=== PATIENT | male | born 1980 | race Caucasian/White ===

== ENCOUNTER 2017-01-14 14:43 | Emergency (ER) | payer OTHER ==
[~2017-01-14] VITALS: Ht 177.8 cm; Wt 56.8 kg
[~2017-01-14 14:43] MED LIST: COLACE100 MG PO; HUMULIN R100 U/1 M1; INSR SC; KEFLEX500 MG PO; LAC PO; LANTI SQ; LANTUS SOLOS100 U/M1 SQ; LISINOPRIL10 MG PO; METFORMIN HCL500 MG PO; NORCO1 TA2 PO; ZESTRIL5 MG PO
[2017-01-14 17:16] VITALS: BP 123/90
== END 2017-01-14 17:16 | disposition home or self-care (01) ==
LOC: ED 14:43
DX: S05.01XA Injury of conjunctiva and corneal abrasion without foreign body, right eye, initial encounter (principal); E11.9 Type 2 diabetes mellitus without complications; I10 Essential (primary) hypertension; Z79.4 Long term (current) use of insulin; X58.XXXA Exposure to other specified factors, initial encounter; Y93.89 Activity, other specified; Y99.8 Other external cause status; Y92.89 Other specified places as the place of occurrence of the external cause

== ENCOUNTER 2017-01-22 16:03 | Emergency (ER) | payer OTHER ==
[~2017-01-22] VITALS: Ht 177.8 cm; Wt 61.2 kg
[2017-01-22 16:44] VITALS: BP 140/93
== END 2017-01-22 18:30 | disposition home or self-care (01) ==
LOC: ED 16:03
DX: S05.8X1A Other injuries of right eye and orbit, initial encounter (principal); H10.9 Unspecified conjunctivitis; I10 Essential (primary) hypertension; E10.9 Type 1 diabetes mellitus without complications; Z79.4 Long term (current) use of insulin; Z79.84 Long term (current) use of oral hypoglycemic drugs; W50.0XXA Accidental hit or strike by another person, initial encounter; Y93.89 Activity, other specified; Y99.8 Other external cause status; Y92.89 Other specified places as the place of occurrence of the external cause
CPT/HCPCS: J1885

== ENCOUNTER 2017-01-24 05:38 | Emergency (ER) | payer OTHER ==
[2017-01-24 09:16] VITALS: BP 145/99
== END 2017-01-24 09:16 | disposition home or self-care (01) ==
LOC: ED 05:38
DX: H10.9 Unspecified conjunctivitis (principal); E11.65 Type 2 diabetes mellitus with hyperglycemia; I10 Essential (primary) hypertension; Z79.84 Long term (current) use of oral hypoglycemic drugs; Z79.4 Long term (current) use of insulin
CPT/HCPCS: 82962; J1815; J1885; J7030

== ENCOUNTER 2017-02-14 11:27 | Inpatient (IN) | payer OTHER ==
[~2017-02-14] VITALS: Ht 177.8 cm; Wt 55.8 kg
[2017-02-14 12:28] LABS: BASOPHIL % 0.4 % (0-2); PLATELET COUNT 349 x10^3mcL (130-400)
[2017-02-14 12:30] LABS: RED CELL DISTRIBUTION WIDTH 14.7 % (11.5-14.5)
[2017-02-14 12:34] LABS: BILIRUBIN TOTAL 0.4 mg/dL (0.20-1.00); CALCIUM 8.5 mg/dL (8.5-10.1); CREATININE SERUM 1.5 mg/dL (0.7-1.3); POTASSIUM SERUM 4.5 mmol/L (3.5-5.1); TOTAL PROTEIN, SERUM 6.3 g/dL (6.4-8.2)
[2017-02-14 12:36] LABS: ALBUMIN 2.7 g/dL (3.4-5.0)
[2017-02-14 13:44] LABS: microscopic required? YES; urine erythrocyte 1+ (NEGATIVE)
[2017-02-14 14:45] LABS: CALCIUM 7.9 mg/dL (8.5-10.1); CARBON DIOXIDE 28.3 mmol/L (21-32); CHLORIDE SERUM 101 mmol/L (98-107); CREATININE SERUM 1.3 mg/dL (0.7-1.3); GFR1 > 60 mL/min; GLUCOSE SERUM 301 mg/dL (74-106); SODIUM SERUM 136 mmol/L (136-145)
[2017-02-14] MEDS ORDERED: PREMIERPRO RX5 MG/GM (14:51)
[2017-02-14 14:52] LABS: MAGNESIUM 1.7 mg/dL (1.8-2.4); PHOSPHOROUS 4.1 mg/dL (2.5-4.9)
[2017-02-14 14:53] LABS: CHOLESTEROL/HDL RATIO 5.8
[2017-02-14] MEDS ORDERED: ZESTRIL10 MG PO (14:55)
[2017-02-14 15:21] VITALS: BP 165/96
[2017-02-14 15:42] LABS: AMPHETAMINE QUAL UR POSITIVE (NEG <=1000)
[2017-02-14 16:45] VITALS: BP 170/91
[2017-02-14 18:05] VITALS: BP 175/99
[2017-02-14 20:54] VITALS: BP 145/82
[2017-02-15 05:45] VITALS: BP 140/70
[2017-02-15 07:13] LABS: BASOPHIL % 0.3 % (0-2); PLATELET COUNT 327 x10^3mcL (130-400)
[2017-02-15 07:40] LABS: RED CELL DISTRIBUTION WIDTH 15.3 % (11.5-14.5)
[2017-02-15 07:41] LABS: CHLORIDE SERUM 104 mmol/L (98-107); CREATININE SERUM 1.1 mg/dL (0.7-1.3); GFR1 > 60 mL/min; GLUCOSE SERUM 155 mg/dL (74-106); POTASSIUM SERUM 4.3 mmol/L (3.5-5.1); SODIUM SERUM 139 mmol/L (136-145)
[2017-02-15 09:35] VITALS: BP 144/83
[2017-02-15 13:58] VITALS: BP 151/88
[2017-02-15 15:17] LABS: IRON 63 ug/dL (65-170)
[2017-02-15 15:36] LABS: TOTAL IRON BINDING CAPACITY 219 ug/dL (250-450)
[2017-02-15 17:03] VITALS: BP 131/76
[2017-02-15 20:47] VITALS: BP 151/97
[2017-02-16 05:59] VITALS: BP 142/87
[2017-02-16 06:25] LABS: BASOPHIL % 0.3 % (0-2); PLATELET COUNT 354 x10^3mcL (130-400)
[2017-02-16 06:40] LABS: RED CELL DISTRIBUTION WIDTH 14.9 % (11.5-14.5)
[2017-02-16 06:45] LABS: CALCIUM 8.5 mg/dL (8.5-10.1); CARBON DIOXIDE 27.6 mmol/L (21-32); CHLORIDE SERUM 106 mmol/L (98-107); GFR1 > 60 mL/min; POTASSIUM SERUM 3.2 mmol/L (3.5-5.1); SODIUM SERUM 140 mmol/L (136-145)
[2017-02-16 06:50] LABS: GLUCOSE SERUM 36 mg/dL (74-106)
[2017-02-16 08:21] VITALS: BP 151/99
[2017-02-16] MEDS ORDERED: OSCD PO (11:40)
[2017-02-16] MEDS ORDERED: FER300 PO (11:41)
[2017-02-16] MEDS ORDERED: BACO TOP (11:45)
[2017-02-16] MEDS ORDERED: THERA TABS1 TAB PO (11:46)
[2017-02-16] MEDS ORDERED: HIBICLENS118 ML TOP (11:46)
[2017-02-16] MEDS ORDERED: LEVEMIR100 U/M1 SQ (11:48)
[2017-02-16 12:05] VITALS: BP 154/82
[2017-02-16 15:48] VITALS: BP 154/82
== END 2017-02-16 16:10 | disposition home or self-care (01) | DRG 420 ==
LOC: ED 11:27 → DU 13:38
PROVIDERS: Emergency Medicine; ADMIT Family Medicine
DX: E10.65 Type 1 diabetes mellitus with hyperglycemia (principal); N17.0 Acute kidney failure with tubular necrosis; E43 Unspecified severe protein-calorie malnutrition; D68.69 Other thrombophilia; E87.8 Other disorders of electrolyte and fluid balance, not elsewhere classified; E10.22 Type 1 diabetes mellitus with diabetic chronic kidney disease; S05.8X1A Other injuries of right eye and orbit, initial encounter; E83.42 Hypomagnesemia; N18.3 Chronic kidney disease, stage 3 (moderate); E87.1 Hypo-osmolality and hyponatremia; E78.5 Hyperlipidemia, unspecified; D64.9 Anemia, unspecified; H54.41 Blindness, right eye, normal vision left eye; R74.0 Nonspecific elevation of levels of transaminase and lactic acid dehydrogenase [LDH]; E86.0 Dehydration; R82.4 Acetonuria; F15.10 Other stimulant abuse, uncomplicated; N20.0 Calculus of kidney; X58.XXXA Exposure to other specified factors, initial encounter; Y93.89 Activity, other specified; Z79.4 Long term (current) use of insulin; Z79.84 Long term (current) use of oral hypoglycemic drugs; Y92.89 Other specified places as the place of occurrence of the external cause; Z80.43 Family history of malignant neoplasm of testis; Y99.8 Other external cause status
CPT/HCPCS: 36600; 82962; 83880; J1815; J3475; J3490; J7030; Q0092

== ENCOUNTER 2017-04-07 16:00 | Emergency (ER) | payer SELFPAY ==
[~2017-04-07] VITALS: Ht 177.8 cm; Wt 55.8 kg
[~2017-04-07 16:00] MED LIST changes: +BACO TOP; +FER300 PO; +HIBICLENS118 ML TOP; +LEVEMIR100 U/M1 SQ; +OSCD PO; +PREMIERPRO RX5 MG/GM; +THERA TABS1 TAB PO; +ZESTRIL10 MG PO
[2017-04-07 16:46] LABS: BASOPHIL % 0.1 % (0-2); PLATELET COUNT 324 x10^3mcL (130-400)
[2017-04-07 17:09] LABS: CALCIUM 8.4 mg/dL (8.5-10.1); CARBON DIOXIDE 27.8 mmol/L (21-32); CHLORIDE SERUM 92 mmol/L (98-107); CREATININE SERUM 1.4 mg/dL (0.7-1.3); GFR1 > 60 mL/min; SODIUM SERUM 127 mmol/L (136-145)
[2017-04-07 17:10] LABS: GLUCOSE SERUM 567 mg/dL (74-106)
[2017-04-07 20:00] VITALS: BP 126/77
== END 2017-04-07 20:00 | disposition home or self-care (01) ==
LOC: ED 16:00
PROVIDERS: Emergency Medicine
DX: R51 Headache (principal); M79.1 Myalgia; R05 Cough; R11.0 Nausea; E11.9 Type 2 diabetes mellitus without complications; I10 Essential (primary) hypertension; Z79.84 Long term (current) use of oral hypoglycemic drugs
CPT/HCPCS: 82962; 87804; J1815; J1885; J2405; J7030

== ENCOUNTER 2017-08-06 13:14 | Inpatient (IN) | payer OTHER ==
[~2017-08-06] VITALS: Ht 152.4 cm; Wt 53.6 kg
[2017-08-06 14:01] LABS: BASOPHIL % 0.3 % (0-2); PLATELET COUNT 342 x10^3mcL (130-400)
[2017-08-06 14:17] LABS: RED CELL DISTRIBUTION WIDTH 15.1 % (11.5-14.5)
[2017-08-06 14:22] LABS: microscopic required? YES; urine erythrocyte 1+ (NEGATIVE)
[2017-08-06 14:42] LABS: AMPHETAMINE QUAL UR POSITIVE (NEG <=1000)
[2017-08-06 15:07] LABS: BILIRUBIN TOTAL 0.3 mg/dL (0.20-1.00); CALCIUM 8.3 mg/dL (8.5-10.1); CARBON DIOXIDE 22.3 mmol/L (21-32); POTASSIUM SERUM 4.8 mmol/L (3.5-5.1); TOTAL PROTEIN, SERUM 6.5 g/dL (6.4-8.2)
[2017-08-06 15:10] LABS: ALBUMIN 2.5 g/dL (3.4-5.0)
[2017-08-06 15:50] LABS: CREATININE SERUM 2.1 mg/dL (0.7-1.3); T4(THYROXINE) 0.7 ug/dL (4.7-13.3)
[2017-08-06] MEDS ORDERED: METFORMIN HYDR500 M1 PO (15:56)
[2017-08-06 16:33] VITALS: BP 130/75
[2017-08-06 16:36] VITALS: Ht 152.4 cm; Wt 53.6 kg
[2017-08-06 17:27] LABS: CHOLESTEROL/HDL RATIO 3.8; MAGNESIUM 2.1 mg/dL (1.8-2.4); PHOSPHOROUS 4.7 mg/dL (2.5-4.9)
[2017-08-06 17:33] VITALS: BP 130/97
[2017-08-06 18:13] VITALS: BP 130/97
[2017-08-06 22:15] VITALS: BP 126/76
[2017-08-07 06:03] VITALS: BP 155/88
[2017-08-07 07:36] LABS: CALCIUM 8.3 mg/dL (8.5-10.1); CARBON DIOXIDE 23.7 mmol/L (21-32); CHLORIDE SERUM 106 mmol/L (98-107); CREATININE SERUM 1.1 mg/dL (0.7-1.3); GFR1 > 60 mL/min; GLUCOSE SERUM 93 mg/dL (74-106); MAGNESIUM 2.2 mg/dL (1.8-2.4); PHOSPHOROUS 4.1 mg/dL (2.5-4.9); POTASSIUM SERUM 4.2 mmol/L (3.5-5.1); SODIUM SERUM 140 mmol/L (136-145)
[2017-08-07 07:52] LABS: PLATELET COUNT 333 x10^3mcL (130-400)
[2017-08-07 08:10] LABS: BASOPHIL % 0 % (0-2); RED CELL DISTRIBUTION WIDTH 15.5 % (11.5-14.5)
[2017-08-07 10:10] VITALS: BP 148/91
[2017-08-07] MEDS ORDERED: LEVAQUIN250 M1 PO (11:28)
[2017-08-07] MEDS ORDERED: LEVEMIR100 U/M1 SQ (11:28)
[2017-08-07] MEDS ORDERED: COUGH100 MG/5 M PO (11:29)
[2017-08-07] MEDS ORDERED: ROBITUSSIN W/CODEINE PO (11:29)
[2017-08-07] MEDS ORDERED: BACO TOP (11:29)
[2017-08-07 12:11] VITALS: BP 148/91
== END 2017-08-07 12:35 | disposition home or self-care (01) | DRG 420 ==
LOC: ED → DU 15:00 → MU 15:00 → DU 16:11 → MU 08-07 06:21
PROVIDERS: Emergency Medicine; Student in an Organized Health Care Education/Training Program
DX: E11.10 Type 2 diabetes mellitus with ketoacidosis without coma (principal); N17.0 Acute kidney failure with tubular necrosis; E43 Unspecified severe protein-calorie malnutrition; J10.08 Influenza due to other identified influenza virus with other specified pneumonia; I10 Essential (primary) hypertension; H54.40 Blindness, one eye, unspecified eye; E87.1 Hypo-osmolality and hyponatremia; Z79.84 Long term (current) use of oral hypoglycemic drugs; Z68.23 Body mass index [BMI] 23.0-23.9, adult; Z79.899 Other long term (current) drug therapy
CPT/HCPCS: 36600; 83880; 87804; J1815; J1956; J2930; J7030; J7613; J7620; J7644; Q0092

== ENCOUNTER 2018-07-21 13:59 | Emergency (ER) | payer OTHER ==
[~2018-07-21] VITALS: Ht 177.8 cm; Wt 59.0 kg
[~2018-07-21 13:59] MED LIST changes: +COUGH100 MG/5 M PO; +LEVAQUIN250 M1 PO; +METFORMIN HYDR500 M1 PO; +ROBITUSSIN W/CODEINE PO
[2018-07-21 14:08] VITALS: BP 115/76; Ht 177.8 cm; Wt 59.0 kg
== END 2018-07-21 15:29 | disposition left against medical advice (07) ==
LOC: ED 13:59
DX: Z53.21 Procedure and treatment not carried out due to patient leaving prior to being seen by health care provider (principal)

== ENCOUNTER 2018-08-08 07:43 | Inpatient (IN) | payer OTHER ==
[~2018-08-08] VITALS: Ht 177.8 cm; Wt 59.0 kg
--- NOTE | 2018-08-08 07:54 | NUR ---
PER DR. MUKUND JIANG TO ORDER DIET.
--- NOTE | 2018-08-08 07:59 | NUR ---
PT SOM IN BY [facility] FOR LOW BS. UNCONCIOUS UPON ARRIVAL PER [facility]. PT GIVEN D10 SAWYER CORK SLABS. PT NOW A/O ABLE TO COMMUNICATE NEEDS. PT EXPRESSED GIVEN SELF WRONG INSULIN LAST PM AROUND 1045 UPON ARRIVAL BS WAS 36 DR. DUVAL AWARE PT GIVEN WARM BLANKET SANDWICH AND OJ FOR COMFORT AND TO INCREASE BS. WILL CONTINUE TO RECHECK
--- NOTE | 2018-08-08 08:05 | NUR ---
LAB AT BEDSIDE
[2018-08-08 08:20] LABS: BASOPHIL % 0.4 % (0-2)
[2018-08-08 08:21] LABS: PLATELET COUNT 475 x10^3mcL (130-400)
--- NOTE | 2018-08-08 08:28 | NUR ---
PT BS INCRASE TO 53 PT IS ALERT AND ORIENTED. SPEAKS IN FULL SENTENCES AND ABLE TO COMMUNICATE NEEDS. PT GIVE OJ AND WARM BLANKET FOR CONTINUED COMFORT AND BS
[2018-08-08 08:31] LABS: ALKALINE PHOSPHATASE 241 U/L (46-116); ALT/SGPT 49 U/L (16-63); AST/SGOT 32 U/L (15-37); CALCIUM 9.6 mg/dL (8.5-10.1); CARBON DIOXIDE 34.5 mmol/L (21-32); CHLORIDE SERUM 102 mmol/L (98-107); CREATININE SERUM 1.5 mg/dL (0.7-1.3); GFR1 57 mL/min; SODIUM SERUM 138 mmol/L (136-145); TOTAL PROTEIN, SERUM 7.7 g/dL (6.4-8.2)
--- NOTE | 2018-08-08 08:34 | NUR ---
DR. DUVAL INFORMED BS 53 AT THIS TIME, PT AWAKE, ALERT, NO ORDERS AT THIS TIME.
[2018-08-08 09:02] LABS: ALBUMIN 2.8 g/dL (3.4-5.0); GLUCOSE SERUM 31 mg/dL (74-106); POTASSIUM SERUM 2.7 mmol/L (3.5-5.1)
--- NOTE | 2018-08-08 09:14 | NUR ---
VITALS TAKEN AND INFORMED DR DUVAL OF BP. PER MD HOLD LABATALOL AND OK TO GIVE CLINIDINE. IV INFUSING WITH NO INFILTRATION OR PAINNOTED. PT LYING COMFORTABLY AT CURRENT TIME. MEDICATION GIVEN WITHOUT DIFFICULTY
[2018-08-08 09:18] LABS: BILIRUBIN TOTAL 0.15 mg/dL (0.20-1.00)
--- NOTE | 2018-08-08 10:07 | NUR ---
BS CHECK 204. NOTIFIED DR DUVAL OF RESULT. PER DR BRAR D10 AND RECHECK Q 1HR
[2018-08-08] MEDS ORDERED: LANTUS SOLOS100 U/M1 SQ (10:33)
--- NOTE | 2018-08-08 10:55 | NUR ---
D10 IV AT 100 CC/HR INFUSING ORDERED. PT SLEEPING, EASILY AROUSABLE, NO SIGNS OF DISTRESS. NSR ON HUSBANDRY PERSON.
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
--- NOTE | 2018-08-08 12:09 | NUR ---
08/08/18 AT 1149: SPOT CHECKED BLOOD GLUCOSE = 69. PT GIVEN 1 ORANGE JUICE. 08/08/18 AT 1209: RECHECKED BLOOD GLUCOSE = 72. WILL CONTINUE TO MONITOR.
[2018-08-08 12:35] LABS: microscopic required? YES; urine erythrocyte 2+ (NEGATIVE)
[2018-08-08 12:38] VITALS: BP 185/112
[2018-08-08 13:16] LABS: AMPHETAMINE QUAL UR POSITIVE (See below)
--- NOTE | 2018-08-08 14:47 | NUR ---
PT RESTING IN BED. NO ACUTE DISTRESS. ASLEEP BUT AROUSABLE. RESP EVEN AND UNLABORED ON RA. IVF INFUSING, NO REDNESS OR SWELLING. BED IN LOW POSITION, CALL LIGHT WITHIN REACH. WILL CONTINUE TO MONITOR.
[2018-08-08 15:10] VITALS: BP 165/99
[2018-08-08 16:25] VITALS: BP 150/94
--- NOTE | 2018-08-08 18:43 | NUR ---
PT RESTING IN BED. NO ACUTE DISTRESS. SLEEPING BUT AROUSABLE. RESP EVEN AND UNLABORED ON RA. IVF INFUSING, NO REDNESS OR SWELLING TO IV SITE. BED IN LOW POSITION, CALL LIGHT WITHIN REACH. WILL ENDORSE TO ONCOMING SHIFT.
--- NOTE | 2018-08-08 19:50 | NUR ---
AOX4. DROWSY BUT ARROUSABLE. TELE #25, SR. LUNGS CLEAR ON RA. PULSES PALPABLE. NO EDEMA. BOWEL SOUNDS ACTIVE. VOIDS FREELY. AMBULATORY. DRY SCAB NOTED TO L FACE, JUAN C. L GREAT TOE AMPUTATED. SKIN WARM AND DRY OTHERWISE. DENIES PAIN. IV TO LH, PATENT AND INFUSING. BED IN LOWEST POSITION, 2 SIDE RAILS UP, CALL LIGHT IN REACH. INSTRUCTED TO CALL FOR ASSISTANCE.
[2018-08-08 21:06] VITALS: BP 138/81
--- NOTE | 2018-08-09 00:35 | NUR ---
RESTING IN BED WITH EYES CLOSED. BREATHING EVEN AND UNLABORED ON RA. NO ACUTE DISTRESS NOTED. EASILY ARROUSABLE TO VERBAL STIMULI. WILL CONTINUE TO MONITOR.
[2018-08-09 05:46] VITALS: BP 144/94
--- NOTE | 2018-08-09 06:14 | NUR ---
BLOOD SUGAR STABLE OVERNIGHT. PT AOX4. NO S/S OF HYPOGLYCEMIA. NO ACUTE DISTRESS NOTED. NO ACUTE CHANGES. WILL ENDORSE TO ONCOMING RN.
[2018-08-09 07:00] LABS: BASOPHIL % 0.3 % (0-2)
[2018-08-09 07:03] LABS: PLATELET COUNT 412 x10^3mcL (130-400); RED CELL DISTRIBUTION WIDTH 15.3 % (11.5-14.5)
[2018-08-09 07:19] LABS: CALCIUM 8.3 mg/dL (8.5-10.1); CARBON DIOXIDE 28.4 mmol/L (21-32); CHLORIDE SERUM 106 mmol/L (98-107); CREATININE SERUM 1.2 mg/dL (0.7-1.3); GFR1 > 60 mL/min; GLUCOSE SERUM 140 mg/dL (74-106); POTASSIUM SERUM 4.4 mmol/L (3.5-5.1); SODIUM SERUM 140 mmol/L (136-145)
--- NOTE | 2018-08-09 07:30 | NUR ---
RECEIVED PT IN NO ACUTE DISTRESS. ASLEEP BUT AROUSABLE. RESP EVEN AND UNLABORED ON RA. IV TO L HAND AND RFA, NO REDNESS OR SWELLING NOTED TO IV SITE. BED IN LOW POSITION, CALL LIGHT WITHIN REACH. WILL CONTINUE TO MONITOR.
--- NOTE | 2018-08-09 07:52 | NUR ---
PT REPORTED IV TO LEFT HAND CAME OUT, CATHETER INTACT. IV TO RFA INTACT, NO REDNESS OR SWELLING. WILL CONTINUE TO MONITOR.
[2018-08-09 08:10] VITALS: BP 155/72
[2018-08-09 12:39] VITALS: BP 148/85
--- NOTE | 2018-08-09 13:11 | NUR ---
08/09/18 AT 1153 BLOOD GLUCOSE CHECKED WAS AT 565. REPEATED 591. PT AWAKE, ALERT AND ORIENTED. PT GIVEN 21 UNITS OF REGULAR INSULIN PER SLIDING SCALE PROTOCOL. MOLD CAPPER JASSI NOTIFIED. GAVE ORDER TO DC IVF, CARRIED OUT ORDERED. BLOOD GLUCOSE REPEATED AT 1245. INITIAL READING "HI" ON ACUCHECK MACHINE. REPEATED 483. PT AWAKE, ALERT AND ORIENTED. NOTIFIED MOLD CAPPER JASSI. GAVE ORDER TO GIVE 8 UNITS REGULAR INSULIN BEFORE PT EATS LUNCH. CARRIED OUT ORDERED CALL LIGHT WITHIN REACH. WILL CONTINUE TO [facility].
[2018-08-09 16:59] VITALS: BP 140/78
--- NOTE | 2018-08-09 18:16 | NUR ---
08/09/18 AT 1655 BLOOD GLUCOSE 28. REPEATED GLUCOSE WAS 42. PT WAS AWAKE AND ALERT. PT REFUSED D50. PT WAS GIVEN 3 ORANGE JUICE WITH 5 TOTAL PACKETS OF SUGAR, 1 APPLE JUICE AND CRACKERS. GLUCOSE RECHECKED AT 1723 WAS 38, WAS RECHECKED AGAIN WAS 62. PT GIVEN MORE ORANGE JUICE WITH 4 PACKETS OF SUGAR. PT WAS GIVEN HIS DINNER AT WAS EATING AT THIS TIME. BLOOD GLUCOSE REPEATED AT 1805 AND WAS 148. PT AOX4. NO ACUTE DISTRESS AT THIS TIME. CALL LIGHT WITHIN REACH. WILL CONTINUE TO [facility].
--- NOTE | 2018-08-09 18:35 | NUR ---
PT LAYING DOWN IN BED. PT ALERT AND ORIENTED. NO SIGNS OF ACUTE DISTRESS. RESPIRATIONS ARE UNLABORED AND EVEN. IV SITE PATENT WITH NO SIGNS OF REDNESS OR SWELLING. BED IN LOWEST POSITION. CALL LIGHT WITHIN REACH. WILL ENDORSE TO ONCOMING SHIFT.
[2018-08-09 21:52] VITALS: BP 125/81
--- NOTE | 2018-08-10 01:30 | NUR ---
SPOT CHECK ACCU CHECK 126. PT EASILY AROUSABLE TO VERBAL STIMULI. NO ACUTE DISTRESS NOTED. WILL CONTINUE TO MONITOR.
[2018-08-10 06:17] VITALS: BP 123/72
--- NOTE | 2018-08-10 06:28 | NUR ---
0630 ACCU CHECK 340, ADMINISTERED 12 UNITS REGULAR INSULIN PER EMAR. NO S/S HYPOGLYCEMIA OVERNIGHT. WILL ENDORSE TO ONCOMING RN.
[2018-08-10 06:36] LABS: CALCIUM 8.5 mg/dL (8.5-10.1); CARBON DIOXIDE 29.9 mmol/L (21-32); CHLORIDE SERUM 99 mmol/L (98-107); CREATININE SERUM 1.4 mg/dL (0.7-1.3); GFR1 > 60 mL/min; GLUCOSE SERUM 343 mg/dL (74-106); POTASSIUM SERUM 4.5 mmol/L (3.5-5.1); SODIUM SERUM 132 mmol/L (136-145)
[2018-08-10 07:02] LABS: BASOPHIL % 0.4 % (0-2); PLATELET COUNT 395 x10^3mcL (130-400); RED CELL DISTRIBUTION WIDTH 15.2 % (11.5-14.5)
--- NOTE | 2018-08-10 07:50 | NUR ---
RC'D PT RESTING IN BED WITH NO APPARENT SIGNS OF DISTRESS. A/A/O/X4, SPEECH CLEAR AND APPROPRIATE. DENIES LITTLEJOHN/DIZZINESS. ON TELE, DENIES CHEST PAIN/PRESSURE. PALP PULSES, NO EDEMA NTOED. RESPIRATIONS EQUAL AND UNLABORDE. LUNGS CTA. ON RA, DENIES SOB. ABDOMEN SOFT AND NONTNEDER. ACTIVE BS. DENIES N/V. VOIDS FREELY. DENIES BURNING. AMBULATORY, PT DENIES PAIN AT THIS TIME. IV PATENT AND INTACT. BED IN LOW PSOITION. CALL LIGHT IN REACH. WILL CONTINEU TO MONITOR
--- NOTE | 2018-08-10 08:40 | NUR ---
AM MEDICATIONS GIVEN. PT TOLERATED WELL. RESPIRATIONS EQUAL AND UNLABORED. ON RA, DENIES SOB. PT DENIES PAIN AT THIS TIME. BED IN LOW POSITION. CALL LIGHT IN REACH. WILL CONTINUE TO MONITOR
[2018-08-10 08:43] VITALS: BP 123/71
[2018-08-10 09:00] VITALS: Ht 177.8 cm; Wt 59.0 kg
[2018-08-10 09:49] VITALS: BP 123/71
--- NOTE | 2018-08-10 10:02 | NUR ---
PT PROVIDED WITH DC HOME INFORMATION. PT GIVEN MEDICATION EDUCATION. PT INSTRUCTED TO TAKE MEDICATIONS DIRECTED. PT INSTRUCTED THAT IF WORSENING SIGNS AND SYMPTOMS WERE TO OCCUR TO RETURN TO ED OR REPORT TO PCP. PT AND FAMILY VERBALIZED UNDERSTANDING OF INSTRUCTIONS. TELE AND IV DC'D, CATHETER INTACT. NO REDNESS/INFLAMMATION/DISCOMFORT NOTED. PT TAKEN DOWN WITH ALL PERSONAL BELONGINGS IN HAND FREE OF ANY APPARENT DISTRESS.
== END 2018-08-10 10:04 | disposition home or self-care (01) | DRG 917 ==
LOC: ED 07:43 → DU 09:58
PROVIDERS: Emergency Medicine; Family Medicine; ADMIT Internal Medicine
DX: T38.3X1A Poisoning by insulin and oral hypoglycemic [antidiabetic] drugs, accidental (unintentional), initial encounter (principal); G93.41 Metabolic encephalopathy; N17.0 Acute kidney failure with tubular necrosis; E44.0 Moderate protein-calorie malnutrition; N39.0 Urinary tract infection, site not specified; E10.649 Type 1 diabetes mellitus with hypoglycemia without coma; I12.9 Hypertensive chronic kidney disease with stage 1 through stage 4 chronic kidney disease, or unspecified chronic kidney disease; N18.3 Chronic kidney disease, stage 3 (moderate); E10.22 Type 1 diabetes mellitus with diabetic chronic kidney disease; H54.61 Unqualified visual loss, right eye, normal vision left eye; F12.10 Cannabis abuse, uncomplicated; Z79.4 Long term (current) use of insulin; Y92.009 Unspecified place in unspecified non-institutional (private) residence as the place of occurrence of the external cause
CPT/HCPCS: 82962; 90658; C9113; G0480; J0696; J1644; J3480; J3490; J7042

== ENCOUNTER 2018-11-21 06:19 | Emergency (ER) | payer OTHER ==
[~2018-11-21] VITALS: Ht 177.8 cm; Wt 68.0 kg
[2018-11-21 06:20] VITALS: Ht 177.8 cm; Wt 68.0 kg
[2018-11-21 06:59] LABS: BASOPHIL % 0.4 % (0-2)
[2018-11-21 07:11] LABS: BILIRUBIN TOTAL 0.46 mg/dL (0.20-1.00); CALCIUM 9.1 mg/dL (8.5-10.1); CARBON DIOXIDE 31.2 mmol/L (21-32); CREATININE SERUM 1.7 mg/dL (0.7-1.3); POTASSIUM SERUM 4.1 mmol/L (3.5-5.1); TOTAL PROTEIN, SERUM 6.2 g/dL (6.4-8.2)
[2018-11-21 07:14] LABS: ALBUMIN 2.1 g/dL (3.4-5.0)
[2018-11-21 07:38] LABS: PLATELET COUNT 440 x10^3mcL (130-400); RED CELL DISTRIBUTION WIDTH 14.8 % (11.5-14.5)
[2018-11-21 10:11] VITALS: BP 144/91
== END 2018-11-21 10:11 | disposition home or self-care (01) ==
LOC: ED 06:19
PROVIDERS: Emergency Medicine
DX: M54.6 Pain in thoracic spine (principal); N28.9 Disorder of kidney and ureter, unspecified; R42 Dizziness and giddiness; R06.00 Dyspnea, unspecified; R11.0 Nausea
CPT/HCPCS: 82962; J1815; J2270; J2405; J7030; Q0092; Q9967

== ENCOUNTER 2019-02-21 21:54 | Emergency (ER) | payer OTHER ==
[~2019-02-21] VITALS: Ht 177.8 cm; Wt 58.1 kg
[2019-02-21 21:58] VITALS: Ht 177.8 cm; Wt 58.1 kg
[2019-02-21 22:34] LABS: BASOPHIL % 0.3 % (0-2); PLATELET COUNT 383 x10^3mcL (130-400)
[2019-02-21 22:36] LABS: RED CELL DISTRIBUTION WIDTH 14.8 % (11.5-14.5)
[2019-02-21 23:04] LABS: BILIRUBIN TOTAL 0.1 mg/dL (0.20-1.00); CALCIUM 8.1 mg/dL (8.5-10.1); CARBON DIOXIDE 31.3 mmol/L (21-32); CREATININE SERUM 1.9 mg/dL (0.7-1.3); POTASSIUM SERUM 4.2 mmol/L (3.5-5.1)
[2019-02-21 23:06] LABS: ALBUMIN 1.9 g/dL (3.4-5.0); TOTAL PROTEIN, SERUM 5.9 g/dL (6.4-8.2)
[2019-02-22 01:34] VITALS: BP 145/87
== END 2019-02-22 01:34 | disposition home or self-care (01) ==
LOC: ED 21:54
PROVIDERS: Emergency Medicine
DX: J18.9 Pneumonia, unspecified organism (principal); I10 Essential (primary) hypertension; E11.9 Type 2 diabetes mellitus without complications
CPT/HCPCS: 82962; 83880; J1815; J7613; J7644

== ENCOUNTER 2019-02-28 01:05 | Emergency (ER) | payer OTHER ==
[~2019-02-28] VITALS: Ht 177.8 cm; Wt 59.4 kg
[2019-02-28 01:11] VITALS: BP 138/93; Ht 177.8 cm; Wt 59.4 kg
== END 2019-02-28 03:02 | disposition left against medical advice (07) ==
LOC: ED 01:05
DX: Z53.21 Procedure and treatment not carried out due to patient leaving prior to being seen by health care provider (principal)

== ENCOUNTER 2019-04-14 15:24 | Emergency (ER) | payer OTHER ==
[~2019-04-14] VITALS: Ht 177.8 cm; Wt 58.5 kg
[2019-04-14 15:43] VITALS: Ht 177.8 cm; Wt 58.5 kg
[2019-04-14 17:00] LABS: PLATELET COUNT 306 x10^3mcL (130-400)
[2019-04-14 17:01] LABS: BASOPHIL % 0 % (0-2)
[2019-04-14 17:12] LABS: CALCIUM 7.9 mg/dL (8.5-10.1); CARBON DIOXIDE 33.6 mmol/L (21-32); CHLORIDE SERUM 98 mmol/L (98-107); CREATININE SERUM 1.3 mg/dL (0.7-1.3); GFR1 > 60 mL/min; GLUCOSE SERUM 257 mg/dL (74-106); POTASSIUM SERUM 3.8 mmol/L (3.5-5.1); SODIUM SERUM 135 mmol/L (136-145)
[2019-04-14 17:15] LABS: AST/SGOT 70 U/L (15-37); MAGNESIUM 1.9 mg/dL (1.8-2.4)
[2019-04-14 17:29] LABS: ALKALINE PHOSPHATASE 267 U/L (46-116); CHOLESTEROL 194 mg/dL (<200); PHOSPHOROUS 3.1 mg/dL (2.5-4.9)
[2019-04-14 17:30] LABS: ALBUMIN 1.7 g/dL (3.4-5.0); HDL CHOLESTEROL 68 mg/dL (40-60); TOTAL PROTEIN, SERUM 5.9 g/dL (6.4-8.2)
[2019-04-14 17:41] LABS: ALT/SGPT 81 U/L (16-63)
[2019-04-14 17:54] LABS: BILIRUBIN TOTAL 0.1 mg/dL (0.20-1.00)
[2019-04-14 19:21] LABS: microscopic required? YES; urine erythrocyte 1+ (NEGATIVE)
[2019-04-14 19:25] VITALS: BP 150/103
[2019-04-14 19:26] LABS: AMPHETAMINE QUAL UR POSITIVE (See below)
== END 2019-04-14 19:25 | disposition home or self-care (01) ==
LOC: ED 15:24
PROVIDERS: Emergency Medicine
DX: M79.601 Pain in right arm (principal); E11.65 Type 2 diabetes mellitus with hyperglycemia; M79.10 Myalgia, unspecified site; F15.10 Other stimulant abuse, uncomplicated; I10 Essential (primary) hypertension; Z98.890 Other specified postprocedural states
CPT/HCPCS: J1885; J7030

== ENCOUNTER 2019-04-16 08:00 | Emergency (ER) | payer OTHER ==
[~2019-04-16] VITALS: Ht 177.8 cm; Wt 62.1 kg
[2019-04-16 08:04] VITALS: Ht 177.8 cm; Wt 62.1 kg
[2019-04-16 08:41] VITALS: BP 150/90
[2019-04-17] MEDS ORDERED: LANTUS SOLOS100 U/M1 SC (03:45)
[2019-04-17] MEDS ORDERED: METFORMIN HYDR500 M1 PO (03:45)
[2019-04-17] MEDS ORDERED: LISINOPRIL10 MG PO (03:46)
== END 2019-04-16 08:41 | disposition home or self-care (01) ==
LOC: ED 08:00
DX: L03.113 Cellulitis of right upper limb (principal); I10 Essential (primary) hypertension; E10.9 Type 1 diabetes mellitus without complications

== ENCOUNTER 2019-04-17 00:40 | Inpatient (IN) | payer OTHER ==
[~2019-04-17] VITALS: Ht 177.8 cm; Wt 60.3 kg
[2019-04-17 00:49] VITALS: Ht 177.8 cm; Wt 60.3 kg
--- NOTE | 2019-04-17 02:10 | NUR ---
PT BIB FAMILY C/O RIOGHT ARM PAIN X5 DAYS. DENIES INJURY. PT REPORTS BEING SEEN THIS MORNING HERE AT [facility] AND PAIN HAS WORSENED TODAY. PER OT, THERE IS "A BLOOD INFECTION" TO HIS ARM. NO SWELLING OR REDNESS NOTED TO RIGHT ARM. PT IS AAOX4, NO DISTRESS NOTED, RESP E/U, SKIN INTACT WARM AND DRY. PT LAYING IN POSITION OF COMFORT WITH SLING TO RIGHT ARM THAT WAS PLACED THIS MORNING AT ER VISIT. MSE COMPLETED BY . PT ORIENTED TO ROOM, BED IN LOWEST POSITION AND CALL ZELAYA WITHIN REACH. PT PLACED ON MONITOR. AWAITING FURTHER ORDERS.
--- NOTE | 2019-04-17 02:30 | NUR ---
IN MOLD COATER AT BEDSIDE FOR LAB DRAW.
[2019-04-17 02:40] LABS: BASOPHIL % 0.3 % (0-2); PLATELET COUNT 301 x10^3mcL (130-400); RED CELL DISTRIBUTION WIDTH 14.2 % (11.5-14.5)
[2019-04-17 02:49] LABS: CALCIUM 8.4 mg/dL (8.5-10.1); CARBON DIOXIDE 33.9 mmol/L (21-32); CREATININE SERUM 1.6 mg/dL (0.7-1.3); POTASSIUM SERUM 3.4 mmol/L (3.5-5.1)
--- NOTE | 2019-04-17 02:53 | NUR ---
PT AMBULATED TO RESTROOM WITH A STEADY GAIT TO RESTROOM AND BACK TO [facility] WITHOUT INCIDENT.
[2019-04-17 02:54] LABS: ALBUMIN 1.5 g/dL (3.4-5.0); BILIRUBIN TOTAL 0.18 mg/dL (0.20-1.00); TOTAL PROTEIN, SERUM 5.9 g/dL (6.4-8.2)
[2019-04-17 03:06] LABS: CHOLESTEROL/HDL RATIO 3.2
--- NOTE | 2019-04-17 03:07 | NUR ---
COMPANY ACCOUNTANT AT BEDSIDE. PT REFUSED XRAY. DR AUGUSTIN NOTIFIED. DR AUGUSTIN AT BEDSIDE DISCUSSING PLAN OF CARE TO PATIENT AND INSTRUCTED OF IMPROTANCE OF XRAY. PT AGREED TO XRAY AT THIS TIME.
[2019-04-17 03:36] LABS: microscopic required? YES; urine erythrocyte 1+ (NEGATIVE)
[2019-04-17] MEDS ORDERED: LANTUS SOLOS100 U/M1 SC (03:45)
[2019-04-17] MEDS ORDERED: METFORMIN HYDR500 M1 PO (03:45)
[2019-04-17] MEDS ORDERED: LISINOPRIL10 MG PO (03:46)
--- NOTE | 2019-04-17 03:52 | NUR ---
FLUIDS INFUSING, NO PROBELM, NO INFILTRATION OR PAIN NOTED TO IV SITE. PT IN POSTION OF COMFORT RIGHT SIDE LAYING. PT ON MONITOR, VSS, WILL CONT TO MONITOR.
--- NOTE | 2019-04-17 04:09 | NUR ---
REPORT GIVEN TO RIGO SUTTON ON [facility], WHO WILL ASSUME FURTHER CARE OF THIS PATIENT.
[2019-04-17 04:20] LABS: AMPHETAMINE QUAL UR POSITIVE (See below)
[2019-04-17 04:57] VITALS: BP 149/78
--- NOTE | 2019-04-17 06:05 | NUR ---
RECEIVED PT IN FROM ED VIA WHEELCHAIR ACCOMPANIED BY RN. PT CAME DUE TO RIGHT ELBOW PAIN X5 DAYS. AOX4. AMBULATORY. ABLE TO FOLLOW COMMANDS. C/O PAIN ELBOW 01/30. ABDOMEN SOFT AND ROUND. BOWEL SAOUNDS ACTIVE. REGULAR BM. COULD'T TAKE A PHOTO ON HIS RIGHT ARM DUE TO PAIN. PT C/O PAIN TO TOUCHED AND MOVEMENT. REFUSED TO BE TOUCHED ON HIS RIGHT ARM. ABSENT OF LEFT BIG TOE. PULSES PRESENT. TRACE EDEMA TO BLE. RIGHT ARM TENDER TO TOUCHED. BED IN LOWEST POSITION,CALL LIGHT WITHIN REACH. WILL CONTINUE TO MONITOR.
--- NOTE | 2019-04-17 06:55 | NUR ---
RECEIVED PT IN BED FROM ED VIA WHEELCHAIR ACCOMPANIED BY AN RN. PT CAME IN DUE TO RIGHT ELBOW PAIN X5 DAYS.AOX4.AMBULATORY. ABLE TO FOLLOW COMMANDS. IV SITE PATENT AND INTACT.NOT ABLE TO TAKE PHOTO ON THE RIGHT ARM,PT REFUSED DUE TO PAIN UPON MOVEMENT AND TOUCHED.ABDOMEN SOFT AND ROUND. BOWEL SOUNDS ACTIVE.EDEMA TO BLE AND RIGHT ARM. ABSENT OF LEFT BIG TOE.BED IN LOWEST POSITION,CALL LIGHT WITHIN REACH. WILL CONTINUE TO MONITOR.
--- NOTE | 2019-04-17 07:31 | NUR ---
CARE ENDORSED TO DAY NURSE EDITH. ALL QUESTIONS AND CONCERN WERE ADDRESSED.
--- NOTE | 2019-04-17 07:35 | NUR ---
RECEIVED HAND OFF REPORT FROM RIGO RN. PATIENT SLEEPING AT THIS TIME, BREATHING EVEN AND UNLABORED, NO DISTRESS NOTED. PATIENT HAS VANCO DUE TO 0600, NURSE UNAWARE WHY MEDICATION WAS NOT READY OR GIVEN. IMELDA SIERRA CALLING PHARMACY AT THIS TIME, FOR THE FIRST TIME AND LEARNING THAT MEDICATION NOT MIXED OR READY YET. ENDORSES TO ME TO GIVE DOSE. VISUALIZED OPEN SORE TO PATIENT LEFT CHEEK. UNABLE TO VISULAZE LEFT ELBOW AT THIS TIME. CALL LIGHT WITHIN REACH OF PATIENT, BED IN LOWEST POSITION
[2019-04-17 08:00] VITALS: BP 156/83
[2019-04-17 08:02] LABS: PLATELET COUNT 339 x10^3mcL (130-400)
[2019-04-17 08:06] LABS: BASOPHIL % 0 % (0-2); RED CELL DISTRIBUTION WIDTH 14.8 % (11.5-14.5)
[2019-04-17 08:13] LABS: CALCIUM 8.3 mg/dL (8.5-10.1); CARBON DIOXIDE 28.9 mmol/L (21-32); CHLORIDE SERUM 95 mmol/L (98-107); CREATININE SERUM 1.4 mg/dL (0.7-1.3); GFR1 > 60 mL/min; GLUCOSE SERUM 317 mg/dL (74-106); POTASSIUM SERUM 3.8 mmol/L (3.5-5.1); SODIUM SERUM 131 mmol/L (136-145)
--- NOTE | 2019-04-17 09:07 | NUR ---
PATIENT AWAKE TO VOICE AND HELPED TO SIT UP TO EAT BREAKFAST. SUPPLIED PILLOW UNDER RIGHT ELBOW PER REQUEST. PATIENT STATES HE IS IN PAIN AND CANNOT MOVE HIS RIGHT ELBOW. PULSES MODERATE IN RIGHT WRIST. REQUESTING NO MANIPULATION OF RIGHT ARM. MEDICATED WITH NORCO AND PER SEPJuliana MOONEY AT BEDSIDE FRO US OF RIGHT ELBOW FOR CELLULITIUS CALL LIGHT WITHIN REACH, WILL CONTINUE TO MONITOR
[2019-04-17 11:40] VITALS: BP 150/88
--- NOTE | 2019-04-17 12:14 | NUR ---
PATIENT SLEEPING AT THIS TIME, ROUSABLE TO VOICE AND FOLLOWING COMMANDS BUT STILL LETHARGIC, BLOOD SUGAR RESULT WAS 328, PATIENT STATING HE WANTS TO SLEEP AND DOES NOT WANT INSULIN COVERAGE. WILL OFFER INSULIN COVERAGE AGAIN WHEN PATIENT HAS LUNCH TRAY
[2019-04-17 16:38] VITALS: BP 181/93
--- NOTE | 2019-04-17 17:37 | NUR ---
PATIENT COMPLAINING OF PAIN TO RIGHT ELBOW. 01/30 MEDICATED WITH NORCO PRN. BLOOD GLUCOSE CHECK WAS 394 COVERED WITH 15 UNITS REGULAR INSULIN PER SLIDING SCALE. FAMILY AT BEDSIDE AT THIS TIME. RECIEVED CALL FROM ER NURSE STATING THAT FROM PATIENT VISIT ON 04/14 PATIENT HAD BLOOD CULTURE DRAWN, PRELIMINARY RESULT SHOWED GONORRHEA IN BLOOD. WILL INFORM DR RIGGINS
--- NOTE | 2019-04-17 19:33 | NUR ---
RECEIVED PT FROM DAY SHIFT RN. PT AAOX4. DENIES LITTLEJOHN/DIZZINESS. BREATHING EVEN AND UNLABORED ON RA WITH NO SOB NOTED. MED SURG PT DENIES CHEST PAIN/PRESSURE. IV BREANA PATENT, INFUSING WELL. ABD SOFT/ROUND ACTIVE BOWEL SOUNDS. DENIES ABD PAIN/N/V. RIGHT ARM/ELBOW ERYTHEMA WITH EDEMA, ELEVATED ON A PILLOW. ABRASION TO LEFT SIDE OF FACE/CHEEK. BLE EDEMA NOTED. NO SIGNS OF ACUTE DISTRESS. CALL BUTTON WITHIN REACH. SAFETY PRECAUTIONS IN PLACE. WILL MONITOR.
[2019-04-17 20:36] VITALS: BP 126/69
--- NOTE | 2019-04-17 21:02 | NUR ---
PT TEMP 100.6 COOLING MEASURES INITIATED. TYLENOL GIVEN PER EMAR. WILL MONITOR.
--- NOTE | 2019-04-18 00:32 | NUR ---
PT REPORTED HAVING RIGHT ARM/ELBOW PAIN 03/02. MEDICATED PER EMAR. CALL BUTTON WITHIN REACH. SAFETY PRECAUTIONS IN PLACE. WILL MONITOR.
--- NOTE | 2019-04-18 01:30 | NUR ---
ROUNDS MADE. PT RESTING. BREATHING EVEN AND UNLABORED ON RA WITH NO SOB NOTED. IV PATENT, INFUSING WELL. NO SIGNS OF DISTRESS. SAFETY PRECAUTIONS IN PLACE. WILL CONTINUE TO MONITOR.
--- NOTE | 2019-04-18 04:55 | NUR ---
PT SLEPT ON AND OFF THROUGHOUT THE NIGHT WITH NO SIGNS OF DISTRESS. IV PATENT, INFUSING WELL. NO SIGNS OF INFILTRATION. PT AMBULATORY WITH BRP. PT ABLE TO TURN AND REPOSITIONED SELF. PT REPORTED RIGHT ARM/ELBOW PAIN X1 TONIGHT. PT MEDICATED PER EMAR. NO SIGNS OF DISTRESS. CALL BUTTON WITHIN REACH. SAFETY PRECAUTIONS IN PLACE. WILL CONTINUE TO MONITOR AND ENDORSE CARE TO DAY SHIFT RN.
[2019-04-18 05:34] VITALS: BP 150/90
--- NOTE | 2019-04-18 05:37 | NUR ---
PT REPORTED HAVING RIGHT ARM/ELBOW PAIN. MEDICATED PER EMAR. CALL BUTTON WITHIN REACH. SAFETY PRECAUTIONS IN PLACE. WILL CONTINUE TO MONITOR.
[2019-04-18 06:50] LABS: BASOPHIL % 0.4 % (0-2); PLATELET COUNT 353 x10^3mcL (130-400)
[2019-04-18 07:05] LABS: CALCIUM 8.4 mg/dL (8.5-10.1); CREATININE SERUM 1.5 mg/dL (0.7-1.3); MAGNESIUM 1.8 mg/dL (1.8-2.4); PHOSPHOROUS 3.4 mg/dL (2.5-4.9); POTASSIUM SERUM 3.7 mmol/L (3.5-5.1)
[2019-04-18 07:17] LABS: RED CELL DISTRIBUTION WIDTH 14.9 % (11.5-14.5)
--- NOTE | 2019-04-18 07:25 | NUR ---
PATIENT AWAKE/ALERT IN BED C/O FEEL LIKE LOW BS, INFORM PATIENT BS 90 THIS MORNING PATIENT STATED IS LOW, OFFERED ORANGE JUICE AND BREAKFAST TRAY, CONT TO MONITOR.
--- NOTE | 2019-04-18 07:41 | NUR ---
PT IN NO SIGNS OF DISTRESS. ENDORSED CARE TO DAY SHIFT RN, ALL QUESTIONS ADDRESSED.
[2019-04-18 08:15] VITALS: BP 152/92
--- NOTE | 2019-04-18 09:25 | NUR ---
PATIENT AWAKE/ALERT IN BED QUIET, NO COMPLAIN. PO MEDS ADMINISTERED, ROCEPHIN IVPB INFUSING TO BREANA IV INTACT AND PATENT, RT ELBOW ELEVATED ON PILLOWS. MOTHER CAME IN TO VISIT PATIENT, RN AT BEDSIDE UPDATE PT'S CONDITION AND POC. QUESTIONS ADDRESSED. NEED MET. CALL LIGHT IN REACH.
--- NOTE | 2019-04-18 09:40 | NUR ---
PATIENT SITTING IN BED, MOTHER AT BEDSIDE, DR. CARRANZA SEEN PATIENT AND DISCUSS W/ PATIENT POC, DR. CARRANZA TOLD PATIENT SOURCE OF INFECTION TO RT ELBOW RESULTED BACTREMIA W/ NEISSEIRIA ( FROM STD). PLAN CONT IV ABX AND CONSULTED W/ LAZARO; PATIENT WANT TO GO HOME BUT MOTHER CONVINCE PATIENT TO STAY ONE MORE DAY. PATIENT AGREE. NEEDS MET. CALL LIGHT IN REACH.
--- NOTE | 2019-04-18 11:34 | NUR ---
PATIENT RESTING IN BED NO COMPLAIN, BS 117 NO COVERAGE; NEEDS MET. CONT TO MONITOR.
--- NOTE | 2019-04-18 12:07 | NUR ---
Initial Nutrition Assessment: /B [address] [place] HR Dx: R elbow cellulitis with bacteremia, DM PMHx: DM non-compliant with medications and HTN PSHx: None, right tib-fib repair, retinal detachment repair Labs: BG 72L, CREAT 1.5H, ALB 1.5L, CA 8.4L, A1C 15.0H, WBC 14.4H, HGB 11.3L Meds: colace, D 50%, humulin, lantus, norco, vancomycin, zofran Diet: CCHO PO Intake: (04/17) dinner 70%, lunch 80%, breakfast 100% Ht: 177.8 cm (70") Wt: 60.3 kg (133#) BMI: 19.1 kg/m2 Bed scale: 137# IBW: 166# (75 kg) %IBW: 80 UBW: 135-137# Age: 38/M Food Allergies: NKFA Skin:R elbow erythema and swelling Mookie: 19 Edema: none GI: Last BM: 04/17 Per H&P, Pt is a 38 yo Male with PMH of DM non-compliant with medications and HTN who presents to the ER from home after receiving a call that his blood cultures were positive for bacterial infection. RDN Visit (04/18): Patient was lethargic but answered all my questions. Patient said he ate most of his breakfast this morning. I explained to him about setting small goals for diabetes management and he admitted that his biggest problem with diet is high consumption of sodas. He was willing to change his habits. Tips and resources were provided. Problem with: N/V/D/C: none at this time Problems with: Chewing/Swallowing: some problems chewing as patient has upper dentures Current appetite: good Recent wt change: none %wt change: n/a Vitamin/Supplement use: started taking MVI recently Special diet at home: regular, heavy soda consumption Physical activity: walking Nutrition education given: Diabetes diet education was provided using [place] handout on Type 2 Diabetes Nutrition Therapy . Concepts like high fiber diet, label reading, types of carbohydrates and portion control were discussed. Patient verbalized understanding and did not have any questions at this time. Food-drug interactions:Colace- high fiber w/8206-9219 ml fluids Education given: n/a Estimated Nutritional Needs Based on current body weight 60.3 kg Energy: 8036-5926 kcal/d (25-30 kcal/kg) Protein: 60-78 g/d (1.0-1.3 g/kg)- infection with bacteremia Fluid: 1455-3841 ml/d (1 ml/kcal) or per doctor Nutrition Diagnosis 1. Food and nutritrion related knowledge deficit related to no prior nutrition education as evidecend by A1C 15.0H. Intervention 1. Recommend continuing [facility] diet. 2. Diabetes diet education provided. Monitor/Evaluate Goal: PO intake at least 75% of estimated needs Monitor: PO intake, Labs, GI function F/U in 7 days as low risk 04/25
--- NOTE | 2019-04-18 12:07 | NUR ---
1. Recommend continuing [facility] diet. 2. Diabetes diet education provided.
--- NOTE | 2019-04-18 12:37 | NUR ---
PATIENT SAT UP IN BED WITH LUNCH TRAY ON THE TABLE, C/O RT ARM PAIN 03/02 NORCO 1 TAB PO GIVEN. NEEDS ATTENDED. CALL LIGHT WITHIN REACH.
[2019-04-18 16:44] VITALS: BP 153/94
--- NOTE | 2019-04-18 16:55 | NUR ---
PATIENT RESTING IN BED NO COMPLAIN, BS 160 GAVE 3 UNITS OF REGULAR SQ TO RT ARM. NEEDS MET. CALL LIGHT WITHIN REACH.
--- NOTE | 2019-04-18 17:48 | NUR ---
PATIENT SITTING UP IN BED EATING AT THIS TIME, C/O RT ARM PAIN 04/02 NORCO 1 TAB PO GIVEN, ASSISTING PATIENT ELEVATED HIS ARM ON PILLOW. PATIENT ATE MOST OF HIS FOOD AND WANT TO LAYING FLAT DOWN. CONT TO MONITOR.
--- NOTE | 2019-04-18 18:40 | NUR ---
PATIENT SLEEPING AT THIS TIME, APPEAR COMFORTABLE. CALL LIGHT WITHIN REACH.
[2019-04-18 20:18] VITALS: BP 170/93
--- NOTE | 2019-04-18 20:32 | NUR ---
PT HAS TEMP OF 100.[address] TYLENOL GIVEN PER EMAR. CALL BUTTON WITHINREACH. SAFETY PRECAUTIONS IN PLACE. WILL MONITOR.
[2019-04-18 22:00] VITALS: BP 157/88
--- NOTE | 2019-04-18 22:46 | NUR ---
DR HAYNES MADE AWARE OF WOUND CULTURE RESULT.
[2019-04-19] VITALS (10 sets, daily range): BP systolic 160–199; BP diastolic 84–119
--- NOTE | 2019-04-19 | NUR ---
DR WILLIS AT BEDSIDE AND MADE AWARE OF WOUND CULTURE RESULT, NO NEW ORDERS AT THIS TIME.
--- NOTE | 2019-04-19 01:00 | NUR ---
ROUNDS MADE. PT RESTING BREATHING EVEN AND UNLABORED ON RA WITH NO SOB NOTED. NO SIGNS OF DISTRESS. CALL BUTTON WITHIN REACH. SAFETY PRECAUTIONS IN PLACE. WILL MONITOR.
--- NOTE | 2019-04-19 05:30 | NUR ---
PT BLOOD SUGAR THIS MORNING 64, 56 AND 62. PT ASY[address]. DR HAYNES MADE AWARE AND ORDER TO PUSH DEXTROSE AT THIS TIME. BLOOD SUGAR RECHECKED AND RESULT OF 173 NO COVERAGE. WILL MONITOR.
[2019-04-19 06:16] LABS: BASOPHIL % 0.3 % (0-2); PLATELET COUNT 376 x10^3mcL (130-400)
[2019-04-19 06:26] LABS: RED CELL DISTRIBUTION WIDTH 15.2 % (11.5-14.5)
--- NOTE | 2019-04-19 06:39 | NUR ---
PT SLEPT ON AND OFF THROUGHOUT THE NIGHT WITH NO SIGNS OF DISTRESS. IV PATENT, INFUSING WELL. NO SIGNS OF INFILTRATION. PT AMBULATORY WITH BRP. PT ABLE TO TURN AND REPOSITIONED SELF. PT MEDICATED PER EMAR. NO SIGNS OF DISTRESS. CALL BUTTON WITHIN REACH. SAFETY PRECAUTIONS IN PLACE. WILL CONTINUE TO MONITOR AND ENDORSE CARE TO DAY SHIFT RN.
[2019-04-19 06:41] LABS: CALCIUM 8.4 mg/dL (8.5-10.1); CARBON DIOXIDE 28.9 mmol/L (21-32); CHLORIDE SERUM 103 mmol/L (98-107); CREATININE SERUM 1.2 mg/dL (0.7-1.3); GFR1 > 60 mL/min; MAGNESIUM 1.9 mg/dL (1.8-2.4); PHOSPHOROUS 3.5 mg/dL (2.5-4.9); POTASSIUM SERUM 3.5 mmol/L (3.5-5.1); SODIUM SERUM 139 mmol/L (136-145)
--- NOTE | 2019-04-19 07:25 | NUR ---
LAB CALLED WITH CRITICAL BLOOD SUGAR RESULT OF 58. PANEL FLOW MACHINE OPERATOR NURSE PREVIOUSLY INTERVENED WITH THIS RESULT AND NOTIFIED DOCTOR. RE CHECK BS, 100 AT THIS TIME. PT GIVEN OJ TO DRINK.
[2019-04-19 07:26] LABS: GLUCOSE SERUM 58 mg/dL (74-106)
--- NOTE | 2019-04-19 07:30 | NUR ---
RECEIVED PT FROM TURF AND GROUNDS SUPERVISOR. PT ASLEEP BUT AROUSABLE. A/OX4. PT ON ROOM AIR WITH NO RESP DISTRESS NOTED. IV ACCESS MARIBETH CDI, INFUSING NS AT 100ML/HR. PERIPHERAL PULSES PALPABLE, EDEMA NOTED TO BLE AND RIGHT ARM AND ELBOW. ACTIVE BS NOTED. NO APPARENT ISSUES WITH ELIMINATION AT THIS TIME. PT AMBULATORY WITH GENERALIZED WEAKNESS. PT REPORTS PAIN TO RIGHT ARM AND ELBOW WITH LIMITED MOVEMENT. PT DENIES NORCO FOR PAIN MANAGEMENT AT THIS TIME. PT REPORTS "IT DOES NOTHING". PT REQUESTING "A SHOT". SAFETY MEASURES IN PLACE, BED LOW AND LOCKED. CALL LIGHT WITHIN REACH.
--- NOTE | 2019-04-19 07:31 | NUR ---
PT IN NO SIGNS OF DISTRESS. ENDORSED CARE TO DAY SHIFT RN, ALL QUESTIONS ADDRESSED.
--- NOTE | 2019-04-19 08:10 | NUR ---
JAMISON PEREZ CANDY CUTTER MACHINE AWARE OF CRITICAL BS FROM THIS MORNING.
--- NOTE | 2019-04-19 10:17 | NUR ---
PT FAMILY AT BEDSIDE. PT CRYING FROM PAIN. PT FAMILY REQUESTING A "PAIN SHOT". PAIN 05/02. PT REFUSES NORCO AT THIS TIME. JAMISON PEREZ FRESH FOOD MANAGER AWARE OF PAIN AND REQUEST. NEW ORDER FOR TORADOL. MED ADMINISTERED ORDERED PRN. WILL MONITOR. PT VERBALLY AGREES FOR HIV TESTING. PER CHARGE NURSE, SIGNED CONSENT NOT REQUIRED ORDERED BY FRESH FOOD MANAGER.
--- NOTE | 2019-04-19 10:19 | NUR ---
OT evaluation performed. Pt refused pain meds prior to eval and was agreeable to eval. Pt was cooperative, had pain on right elbow and hand and was unable to assessed and participate with ROM ex on right elbow and hand. Educate and advised patient importance of pain meds prior to therapy.
--- NOTE | 2019-04-19 12:00 | NUR ---
PT ASLEEP AT THIS TIME WITH NO ACUTE DISTRESS OR DISCOMFORT NOTED. PT BLOOD SUGAR CHECK 233, 6 UNITS ADMINISTERED ORDERED. PT AGREES TO EAT LUNCH.
--- NOTE | 2019-04-19 13:25 | NUR ---
PT BLOOD PRESSURE 170/106 AT THIS TIME. JAMISON CLARKE AWARE, NEW ORDER GIVEN.
--- NOTE | 2019-04-19 13:51 | NUR ---
HYDRALAZINE 25MG PO ADMINISTERED ORDERED ONE TIME DOSE. PT AWAKE, ALERT EATING LUNCH AT THIS TIME.
--- NOTE | 2019-04-19 15:54 | NUR ---
PT BLOOD PRESSURE 194/117 AFTER ADMINISTRATION OF HYDRALAZINE 25MG PO, JAMISON PEREZ UPHOLSTERY DEPARTMENT SUPERVISOR AWARE. NEW ORDER TO TRANSFER PT TO TELEMETRY. NEW ORDER FOR HYDRALAZINE 10MG IVP Q6 HOURS PRN.
--- NOTE | 2019-04-19 16:41 | NUR ---
IV HYDRALAZINE ADMINISTERED PRN ORDERED. PT PLACED ON TELE ORDERED. PT NSR, SLEEPING AT THIS TIME.
--- NOTE | 2019-04-19 17:19 | NUR ---
BLOOD PRESSURE 179/91 (129) HR 107 AT THIS TIME AFTER ADMINISTRATION OF HYDRALAZINE IV.
--- NOTE | 2019-04-19 18:26 | NUR ---
ALL NEEDS TENDED TO THROUGOUT SHIFT. PT SLEEPING AT THIS TIME WITH NO ACUTE DISTRESS OR DISCOMFORT NOTED. WILL CONTINUE TO MONITOR AND ENDORSE CARE TO SKEINER.
--- NOTE | 2019-04-19 19:03 | NUR ---
PT AWAKE, EATING DINNER. ALL NEEDS TENDED TO THROUGHOUT SHIFT. WILL CONTINUE TO MONITOR AND ENDORSE CARE TO INSTRUMENT MAKER AND REPAIRER.
--- NOTE | 2019-04-19 19:25 | NUR ---
RECIEVED PT RESTING IN BED WITH FAMILY AT BEDSIDE, PT REPORTS PAIN TO RIGHT ELBOW MEDICATED PRN (SEE MAR), ASSESSMENT PERFORMED AT THIS TIME, PT IS A/0OX4 NO COMPLAINTS OF LITTLEJOHN OR DIZZINESS, PT DENIES SOB OR CHEST PAIN, IV TO THE LFA, SAFETY PRECAUTIONS IN PLACE, WILL CONTINUE TO MONITOR
--- NOTE | 2019-04-19 19:39 | NUR ---
PT BLOOD PRESSURE ELEVATED AT 190/119 AND PT REPORTS FEELING BLOATED AND CANT USE THE RESTROOM, INFORMED DR HAYNES, DR HAYNES SAID TO GIVE PRN COLACE AND SHE WOULD ORDER ONE TIME DOSE OF APRESOLINE 25 MG AND CHECK THEN INFORM HER OF BP AND HOLD ADMINISTRATION OF SCHEDULED 10MG OF APRESOLINE UNTIL SHE IS INFORMED. ADMINISTERED COLACE PRN
--- NOTE | 2019-04-19 21:25 | NUR ---
PT BP 178/[address] HAYNES AND INFORMED HER, SHE SAID TO GO AHEAD AND GIVE THE SCHEDULED APRESOLINE DOSE IN ADDITION TO THE ONE TIME 25MG DOSE THAT WAS ALREADY GIVEN
--- NOTE | 2019-04-20 00:10 | NUR ---
PT RESTING IN BED WITH NO ACUTE DISTRESS, PT DENIES PAIN AT THIS TIME, RESPIRATIONS EVEN AND UNLABORED, ALL NEEDS ATTENDED TO WILL CONTINUE TO MONITOR
--- NOTE | 2019-04-20 01:53 | NUR ---
PT REFUSED RECHECK OF BLOOD PRESSURE AFTER ADMINISTRATION OF HYDRALAZINE IVP. WILL CONTINUE TO MONITOR
--- NOTE | 2019-04-20 04:48 | NUR ---
PT BLOOD PRESSURE 180/[address] HAYNES, SAID WAIT AND RECHECK IT AT 0630 AND IF STILL HI GIVE HYDRALIZINE IVP PER ORDER. PT ASYMPTOMATIC, DENIES LITTLEJOHN OR DIZZINESS, OR CHEST PAIN
--- NOTE | 2019-04-20 05:21 | NUR ---
PT RESTED THROUGH THE NIGHT, THE PT HAD ONE EPISODE OF PAIN TREATED WITH THE PRN ADMINISTRATION OF TORADOL PRN PER ORDER. PT ALSO COMPLAINED OF CONSTIPATION AND DR HAYNES WAS NOTIFIED AND PT WAS GIVEN COLACE PRN PER DR HAYNES ORDER, PT WAS HYPERTENSIVE THROUGH THE NIGHT, BUT WAS ASYMPTOMATIC AND WAS BEING TREATED WITH PRN HYDRALAZINE TO MINOR EFFECTIVENESS, DR HAYNES MADE AWARE OF BP TREND THROUGH NIGHT AND EFFECTIVENESS OF MEDICATIONS. ALL OTHER NEEDS ATTENDED TO WILL CONTINUE TO MONITOR AND ENDORSE CARE.
--- NOTE | 2019-04-20 05:28 | NUR ---
PT STILL COMPLAINING OF ABD FULLNESS, ABD DISTENDED AND ROUND, INFORMED DR HAYNES, NO NEW ORDERS AT THIS TIME.
[2019-04-20 06:12] VITALS: BP 180/97
[2019-04-20 06:26] LABS: BASOPHIL % 0.4 % (0-2)
--- NOTE | 2019-04-20 06:54 | NUR ---
PT BLOOD PRESSURE ELEVATED AT 187/112 ADMINISTERED HYDRALAZINE IVP PER ORDER. PT IS ASYMPTOMATIC, SAFETY PRECAUTIONS IN PLACE, WILL CONTIUE TO MONITOR
[2019-04-20 07:30] LABS: PLATELET COUNT 424 x10^3mcL (130-400); RED CELL DISTRIBUTION WIDTH 15.1 % (11.5-14.5)
--- NOTE | 2019-04-20 07:45 | NUR ---
RECEIVED PATIENT SLEEPING IN BED, NO ACUTE DISTRESS NOTED. PATIENT DENIES PAIN. TELE MONITOR IN PLACE. ERYTHEMA NOTED TO RIGHT ELBOW WITH NON PITTING EDEMA. PATIENT C/O NO BM IN 5 DAYS, WILL NOTIFY [employer] INSPECTOR JAMISON. GENERALIZED WEAKNESS NOTED, LIMITED MOVEMENT TO RIGHT ELBOW. IV TO BREANA SALINE LOCK, CDI &PATENT, NO S/S OF INFILTRATION. CALL LIGHT WITHIN REACH, BED IN LOW POSITION, WILL CONTINUE TO MONITOR.
[2019-04-20 08:18] LABS: CARBON DIOXIDE 27.8 mmol/L (21-32); CHLORIDE SERUM 102 mmol/L (98-107); GLUCOSE SERUM 113 mg/dL (74-106); POTASSIUM SERUM 3.7 mmol/L (3.5-5.1); SODIUM SERUM 138 mmol/L (136-145)
[2019-04-20 08:19] LABS: CALCIUM 8.7 mg/dL (8.5-10.1); CREATININE SERUM 1.2 mg/dL (0.7-1.3); GFR1 > 60 mL/min
[2019-04-20 09:13] VITALS: BP 170/94
[2019-04-20 12:13] VITALS: BP 166/96
--- NOTE | 2019-04-20 12:59 | NUR ---
MEDICATIONS GIVEN AT THIS TIME. PATIENT SITTING UP AND EATING LUNCH, PATIENT TOLERATING MEAL. ALL NEEDS MET AT THIS TIME. WILL CONTINUE TO MONITOR.
--- NOTE | 2019-04-20 15:53 | NUR ---
BRANDYN SWIFT AWARE OF PATIENT WOUND CULTURE SENSITIVITY TEST RESULT.
[2019-04-20 16:50] VITALS: BP 180/100
--- NOTE | 2019-04-20 17:45 | NUR ---
PATIENT IS SITTING UP IN BED, EATING. PATIENT C/O MODERATE PAIN 11/30, MEDICATED PATIENT WITH TORADOL PER PROTOCOL (SEE EMAR). NO ADCUTE DISTRESS NOTED. CALL LIGHT WITHIN REACH.
--- NOTE | 2019-04-20 19:40 | NUR ---
RECEIVED PATIENT IN BED AWAKE, ALERT AND ORIENTED WITH NO SIGN OF ACUTE DISTRESS NOTED. BREATHING EASY AND NONLABOR WITH CLEAR BS SATTING AT 97% RA. TELE#2 NSR ON MONITOR.EDEMA 1+ NOTED TO BLE AND NON PITTING EDEMA TO RT ELBOW. IV TO BREANA INTACT ON HEPLOCK FLUSHED WITH NS. WILL CONTINUE TO MONITOR. FAMILY MEMBERS AT BEDSIDE.
--- NOTE | 2019-04-20 19:48 | NUR ---
RECEIVED PATIENT IN BED AWAKE WITH FAMILY MEMBERS AT BEDSIDE. FATHER REQUESTED TO TALK TO MD FOR UPDATE RE PATIENT. DR PRICE SAYED MADE AWARE, TO COME TO TALK TO FAMILY MEMBERS. WILL CONTINUE TO MONITOR.
--- NOTE | 2019-04-20 19:57 | NUR ---
DR PRICE SAYED IN PATIENT ROOM AT THIS TIME WITH THE FAMILY MEMBERS FOR PATIENT CONCERS.
[2019-04-20 20:32] VITALS: BP 185/105
--- NOTE | 2019-04-20 21:51 | NUR ---
BLOOD PRESSURE 185/105, APRESOLINE 10MG PO AND ATIVAN 1MG PO GIVEN. WILL RECHECK BP. PATIENT DENIES HEADACHE AND DIZZINESS, ASSYMPTOMATIC. NSR ON MONITOR.
--- NOTE | 2019-04-20 23:57 | NUR ---
APPEAR TO BE SLEEPING THIS TIME BREATHING EASY AND NONLABOR. WILL CONTINUE TO MONITOR. DUE MEDS FOR 12;00 MIDNIGHT GIVEN.
--- NOTE | 2019-04-21 00:05 | NUR ---
HYDRALAZINE 10MG IVP GIVEN PRESCRIBED. BP-180/100. WILL CONTINUE TO MONITOR.
[2019-04-21 01:00] VITALS: BP 149/93
--- NOTE | 2019-04-21 01:00 | NUR ---
RECHEDKED BP-149/93 [id number], HR-102 AFTER HYDRALAZINE 10MG IVP WAS FIVEN. WILL CONTINUE TO MONITOR.
--- NOTE | 2019-04-21 02:45 | NUR ---
RECEIVED REPORT FROM HERMAN KOO. PT SLEEPING AT THIS TIME. NO SOB NOTED. NO FACIAL GRIMACING. SAFETY MEASURES IN PLACE. CALL LIGHT WITHIN REACH. WILL CONTINUE TO MONITOR.
--- NOTE | 2019-04-21 02:56 | NUR ---
CONTINUITY OF CARE ENDORSED TO LUIS, REPORT GIVEN.
[2019-04-21 04:45] VITALS: BP 149/93
[2019-04-21 06:47] LABS: BASOPHIL % 0.6 % (0-2)
[2019-04-21 06:54] LABS: PLATELET COUNT 506 x10^3mcL (130-400); RED CELL DISTRIBUTION WIDTH 15.5 % (11.5-14.5)
[2019-04-21 06:57] LABS: CALCIUM 8.4 mg/dL (8.5-10.1); CARBON DIOXIDE 29.6 mmol/L (21-32); CHLORIDE SERUM 101 mmol/L (98-107); CREATININE SERUM 1.2 mg/dL (0.7-1.3); GFR1 > 60 mL/min; GLUCOSE SERUM 110 mg/dL (74-106); MAGNESIUM 2.2 mg/dL (1.8-2.4); POTASSIUM SERUM 4.2 mmol/L (3.5-5.1); SODIUM SERUM 137 mmol/L (136-145)
--- NOTE | 2019-04-21 07:00 | NUR ---
PT RESTING WITH EYES CLOSED. BREATHING EVEN AND UNLABORED ON ROOM AIR. NO DISTRESS NOTED. IV TO LEFT UPPER ARM, PATENT AND INTACT. SAFETY MEASURES MAINTAINED. CALL LIGHT WITHIN REACH. WILL ENDORSE CONTINUITY OF CARE TO DAY SHIFT RN.
[2019-04-21 08:20] VITALS: BP 170/102
--- NOTE | 2019-04-21 11:16 | NUR ---
REEIVED PATIENT SLEEPING QUIETLY AND IN NO INDICATION OF PAIN. PATIENT HAS BEEN RESTING QUIETLY AND NO SIGN OF WITHDRAWL SYMPTOMS. SUSANA AHS DIMINSIHED BREATH SOUNDS AND A LESION TO THE FACE AND HAS BEEN ADMITTED FOR CELLULITIS TO THE RIGHT AR, THE AREA TO THE ARM IS WITH MINIMAL SWELLING AND REDNESS AT THIS TIME AND NO DREAINAGE NOTED. SEEN BY JAMISON AND PATIENT SLEPT THROUGH THE VITALS ECT. ZENY HAS BEEN TOLERATING THE DIET BUT DID NOT SEEM INTERESTED SO FAR IN THE MEAL THIS AM. GAVE ALL MEDICAIONS AND CONINUE TO WANDA AT THIS TIME AT 98.7, 96, 18, 170/102, 92% ON RO AIR.
[2019-04-21 12:14] VITALS: BP 141/84
--- NOTE | 2019-04-21 12:44 | NUR ---
PATIENT IS STILL VERY SLEEPY BUT CONTINUED ON THE ATIVAN ORDERED. PATIENT HAS TOLERATED TAKING PILLS AND DOES NOT APPEAR TO HAVE ANY DETOX SYMPTOMS NOTED.
--- NOTE | 2019-04-21 12:48 | NUR ---
RECEIVED PATIENT FROM SPOOLER OPERATOR AUTOMATIC. HE IS VERY SLEEPY AND IS ARROUSABLE. WILL CONTINUE TO MONITOR.
--- NOTE | 2019-04-21 16:37 | NUR ---
TANESHA REFUSED VITALS AT THIS TIME. FAMILY BROUGHT IN ALL KIND OF JUNK FOODS THAT PATIENT ATE AND DISCARDED THE WRAPPER ON THE FLOOR AND ALL OVER THE BED. PATIENT IS NOT EVEN TRYING TO HIDE HIS FOOD NON COMPLIANCE. FAMILY WAS VISITING AND THIS WAS THE FIRST TIME TODAY HE WAS AWAKE ENOUGH TO COMMUNICATE WITH THE STAFF. PATIENT HAS BEEN ON RTC ATIVAN FOR WITHDRAWL SYMPTOMS. PATIEN TIS WITH SHAKINESS AND UNCOORDINATED HAND MOVEMENTS.
--- NOTE | 2019-04-21 17:29 | NUR ---
BLOOD SUGAR AT 285 ADN GAV INSULIN BUT FIRST PATIENT WAS A BIT EDGY AND DID NOT WNAT STAFF TO ACCESS HIS HAND FOR THE FINGER STICK. E WAS LYING ON THE LEFT ARM THAT HE DIRRECTED THE STAFF TO USE. HE WAS GRABBING THE BLANKET AND RECOVERING HIMSELF RATHER AGRESSIVELY AND EXPLAINED THAT A BLOOD SUGAR WAS INDICATED. HE AGAIN HAD BEEN EATTING JUNK FOOD AND PREVIOUSL NOTE THE BLOOD SUGAR WAS IN THE 400'S AND ADVISED THAT OPTIMAL HEALING WILL NOT HAPPEN WHEN TH BLOD SUGAR IS TOO HIGH. GAVE 9 UNITS OF REGULAR AND RECOVERED TONO PATIENT INDICATED. THE CLEOCIN HAS BEEN DISCONTINUED AND GAVE THE ATIVAN INDCATED FOR WITHDRAWL PROTOCAL.
--- NOTE | 2019-04-21 19:25 | NUR ---
PATIENT CALLED AND WANTS TO LEAVE THE RESIDEN FORTUNATELY WAS ABLE TO SEE THE PATIENT AND [facility] MEDICAL ADVISE. PATIENT WANTS ANTIBIOTICS BUT THE RESIDENT STATS THIS WOULD INDICATE THAT HE WOULD BE RESPONSIBLE FOR HIS CARE AND LEAVING HE COULD NOT GAURENTEE HIS SAFETY OR HIS HEALTH AT THIS TIME. DISCHARGED HOME WITH FAMILY AND ALL BELONGINGS.
== END 2019-04-21 19:08 | disposition left against medical advice (07) | DRG 871 ==
LOC: ED 00:40 → MU 02:27 → DU 04-19 16:36
PROVIDERS: Emergency Medicine; ADMIT General Practice
DX: A54.86 Gonococcal sepsis (principal); N17.0 Acute kidney failure with tubular necrosis; E43 Unspecified severe protein-calorie malnutrition; L03.113 Cellulitis of right upper limb; E87.1 Hypo-osmolality and hyponatremia; M00.9 Pyogenic arthritis, unspecified; L03.211 Cellulitis of face; L03.818 Cellulitis of other sites; S01.412S Laceration without foreign body of left cheek and temporomandibular area, sequela; E11.65 Type 2 diabetes mellitus with hyperglycemia; F15.10 Other stimulant abuse, uncomplicated; D64.9 Anemia, unspecified; R74.0 Nonspecific elevation of levels of transaminase and lactic acid dehydrogenase [LDH]; E87.6 Hypokalemia; I10 Essential (primary) hypertension; Z79.4 Long term (current) use of insulin; Z68.22 Body mass index [BMI] 22.0-22.9, adult; Z79.84 Long term (current) use of oral hypoglycemic drugs; Z91.14 Patient's other noncompliance with medication regimen; Y93.89 Activity, other specified; W22.8XXS Striking against or struck by other objects, sequela; Y92.013 Bedroom of single-family (private) house as the place of occurrence of the external cause
CPT/HCPCS: 82962; 83880; G0378; J0360; J0696; J1885; J2405; J2543; J3370; J3490; J7030; J7040; J7060; Q0092

== ENCOUNTER 2019-10-26 01:24 | Emergency (ER) | payer OTHER ==
[~2019-10-26] VITALS: Ht 177.8 cm; Wt 65.8 kg
[~2019-10-26 01:24] MED LIST changes: +LANTUS SOLOS100 U/M1 SC
[2019-10-26 01:35] VITALS: Ht 177.8 cm; Wt 65.8 kg
[2019-10-26 04:59] VITALS: BP 118/88
== END 2019-10-26 04:59 | disposition home or self-care (01) ==
LOC: ED 01:24
DX: M79.671 Pain in right foot (principal); M79.672 Pain in left foot; I10 Essential (primary) hypertension; E11.9 Type 2 diabetes mellitus without complications; Z89.429 Acquired absence of other toe(s), unspecified side
CPT/HCPCS: J1885

== ENCOUNTER 2019-12-05 23:43 | Emergency (ER) | payer OTHER ==
[~2019-12-05] VITALS: Ht 177.8 cm; Wt 81.6 kg
[2019-12-05 23:44] VITALS: Ht 177.8 cm; Wt 81.6 kg
[2019-12-06 00:29] LABS: BASOPHIL % 0.3 % (0-2)
[2019-12-06 00:32] LABS: PLATELET COUNT 541 x10^3mcL (130-400); RED CELL DISTRIBUTION WIDTH 16.6 % (11.5-14.5)
[2019-12-06 00:53] LABS: CALCIUM 9.1 mg/dL (8.5-10.1); CARBON DIOXIDE 30.4 mmol/L (21-32); CREATININE SERUM 2.7 mg/dL (0.7-1.3); POTASSIUM SERUM 4.7 mmol/L (3.5-5.1)
[2019-12-06 00:57] LABS: BILIRUBIN TOTAL 0.24 mg/dL (0.20-1.00); TOTAL PROTEIN, SERUM 7.1 g/dL (6.4-8.2)
[2019-12-06 00:59] LABS: ALBUMIN 2.9 g/dL (3.4-5.0)
[2019-12-06 01:52] VITALS: BP 183/98
== END 2019-12-06 01:52 | disposition left against medical advice (07) ==
LOC: ED 23:43
PROVIDERS: Emergency Medicine
DX: E11.65 Type 2 diabetes mellitus with hyperglycemia (principal); J81.0 Acute pulmonary edema; D64.9 Anemia, unspecified; I10 Essential (primary) hypertension
CPT/HCPCS: 83880; J7030; Q0092

== ENCOUNTER 2019-12-12 13:36 | Emergency (ER) | payer OTHER ==
[~2019-12-12] VITALS: Ht 177.8 cm; Wt 79.4 kg
[2019-12-12 13:37] VITALS: Ht 177.8 cm; Wt 79.4 kg
[2019-12-12 14:34] VITALS: BP 198/98
== END 2019-12-12 14:35 | disposition home or self-care (01) ==
LOC: ED 13:36
DX: R53.1 Weakness (principal); G47.00 Insomnia, unspecified; F19.10 Other psychoactive substance abuse, uncomplicated; R22.43 Localized swelling, mass and lump, lower limb, bilateral

== ENCOUNTER 2020-01-17 11:39 | Emergency (ER) | payer OTHER ==
[~2020-01-17] VITALS: Ht 177.8 cm; Wt 70.3 kg
[2020-01-17 11:44] VITALS: Ht 177.8 cm; Wt 70.3 kg
[2020-01-17 12:25] LABS: BASOPHIL % 0.4 % (0-2)
[2020-01-17 12:28] LABS: PLATELET COUNT 471 x10^3mcL (130-400); RED CELL DISTRIBUTION WIDTH 17.3 % (11.5-14.5)
[2020-01-17 12:29] LABS: CALCIUM 8.5 mg/dL (8.5-10.1); CARBON DIOXIDE 30.7 mmol/L (21-32); CREATININE SERUM 1.6 mg/dL (0.7-1.3); POTASSIUM SERUM 3.5 mmol/L (3.5-5.1)
[2020-01-17 12:34] LABS: BILIRUBIN TOTAL 0.3 mg/dL (0.20-1.00); TOTAL PROTEIN, SERUM 6.4 g/dL (6.4-8.2)
[2020-01-17 14:32] VITALS: BP 127/90
== END 2020-01-17 14:32 | disposition home or self-care (01) ==
LOC: ED 11:39
PROVIDERS: Emergency Medicine
DX: K52.9 Noninfective gastroenteritis and colitis, unspecified (principal); I10 Essential (primary) hypertension; E11.9 Type 2 diabetes mellitus without complications
CPT/HCPCS: 82962; J0360; J1885